=== PATIENT | female | born 1935 | race African-American/Black ===

== ENCOUNTER 2017-06-06 17:04 | Emergency (ER) | payer MEDICARE, OTHER ==
[~2017-06-06] VITALS: Ht 154.9 cm; Wt 97.2 kg
[2017-06-06 17:23] VITALS: BP 208/102
[2017-06-06] MEDS ORDERED: cloNIDine HCL 0.1 MG TAB PO ONE (17:30)
[2017-06-06 19:11] LABS: Basophils # (auto) 0 uL; Eosinophils # (auto) 0.1 uL; Eosinophils % (auto) 1.1 % (0.0-7.0); Hematocrit 38.3 % (36.0-46.0); Monocytes # (auto) 0.4 uL; Red Blood Cells 3.28 10^6/uL (4.0-5.20); White Blood Cell 6.2 10^3/uL (4.4-10.8)
[2017-06-06 19:12] LABS: Basophils % (auto) 0.6 % (0.0-2.0); Hemoglobin 12.7 g/dL (12.2-16.2); Lymphocytes # (auto) 2.2 uL; Lymphocytes % (auto) 35.2 % (10.0-50.0); Mean Corpuscular Hemoglobin 38.9 pg (28.0-32.0); Mean Corpuscular Hgb Conc. 33.3 g/dL (32.0-36.0); Mean Corpuscular Volume 116.8 fL (80.0-100.0); Monocytes % (auto) 6.6 % (0.0-12.0); Neutrophils # (auto) 3.5 uL; Neutrophils % (auto) 56.5 % (37.0-80.0); Nucleated Red Blood Cells % 0.4 %; Platelet Count (auto) 381 10^3/uL (140-450)
[2017-06-06 19:15] LABS: Red Cell Distribution Width 23.9 % (11.8-14.3)
[2017-06-06 19:29] LABS: Potassium 3.7 mmol/L (3.5-5.1)
[2017-06-06 19:30] LABS: BUN/Creatinine Ratio 12.9; Bilirubin, Total 0.6 mg/dL (0.2-1.0); Calcium 9.1 mg/dL (8.5-10.1); Total Protein 7.7 g/dL (6.4-8.2)
[2017-06-06 19:31] LABS: Albumin 3.7 g/dL (3.4-5.0); Magnesium 2.2 mg/dL (1.6-2.6)
== END 2017-06-06 19:47 | disposition left against medical advice (07) ==
LOC: ER 17:17
DX: I10 Essential (primary) hypertension (principal); Z53.21 Procedure and treatment not carried out due to patient leaving prior to being seen by health care provider
CPT/HCPCS: 36415; 80053; 83735; 84484; 85025; 93005